=== PATIENT | female | born 1970 | race Caucasian/White ===

== ENCOUNTER 2022-06-12 20:16 | Inpatient (IN) ==
[2022-06-12] MEDS ORDERED: Morphine Sulfate 2 MG/ML SYRINGE IVP ONE (20:43)
[2022-06-12] MEDS ORDERED: 0.9 % Sodium Chloride 1,000 ML IV ONE (20:43)
[2022-06-12 21:18] LABS: Basophils # 0.1 K/mcL (0.0-0.2); Basophils % 0.7 %; Eosinophils # 0.5 K/mcL (0.0-0.6); Eosinophils % 4.1 %; Hemoglobin 11.6 g/dL (11.5-15.4); Immature Granulocytes % 1.1 % (0-4); Lymphocytes # 1.7 K/mcL (0.6-4.6); Lymphocytes % 15.2 %; Mean Corpuscular HGB Conc 30.5 g/dL (31.6-35.5); Mean Corpuscular Hemoglobin 30.1 pg (28.0-33.3); Mean Corpuscular Volume 98.7 fL (83.0-100.0); Mean Platelet Volume 11.1 fL (9.4-12.4); Monocytes # 0.7 K/mcL (0.0-1.3); Monocytes % 6.1 %; Neutrophils # 8.3 K/mcL (1.6-8.9); Platelet Count 246 K/mcL (140-400); Red Blood Count 3.85 M/mcL (3.82-4.97); Red Cell Distribution Width 13.2 % (11.5-14.5); Segmented Neutrophils % 72.8 %; White Blood Count 11.4 K/mcL (4.3-11.1)
[2022-06-12 21:34] LABS: INR 1.3; Prothrombin Time 14.5 Seconds (9.4-12.1)
[2022-06-12 21:36] LABS: BUN/Creatinine Ratio 9 (6-26); Blood Urea Nitrogen 6 mg/dL (6-20); Calcium 8.7 mg/dL (8.6-10.3); Carbon Dioxide 33 mEq/L (23-29); Chloride 97 mEq/L (98-107); Glucose 260 mg/dL (70-105); Magnesium 1.4 mg/dL (1.6-2.6); Osmolality,Calculated 291 (280-300); Potassium 3.2 mEq/L (3.5-5.1); Sodium 137 mEq/L (136-145); eGFR For African Americans > 60 (> 60); eGFR For Non-African Americans > 60 (> 60)
[2022-06-12 21:37] LABS: Activated Partial Thrombo Time 30.9 Seconds (26.0-36.0)
[2022-06-13] MEDS ORDERED: *HR* OxyCODONE Immed Rel 5 MG TABLET PO PRN ×2 (00:30→05:21)
[2022-06-13] MEDS ORDERED: *HR* HYDROcodone/Acet 5/325 mg TABLET PO PRN ×2 (00:30→05:21)
[2022-06-13] MEDS ORDERED: Acetaminophen 325 MG TABLET PO PRN ×2 (00:30→16:04)
[2022-06-13] MEDS ORDERED: Melatonin 3 MG TABLET PO PRN (00:30)
[2022-06-13] MEDS ORDERED: Naloxone 0.4 MG/ML INJ IVP PRN ×2 (00:30→16:04)
[2022-06-13] MEDS ORDERED: Ondansetron 4 MG/2 ML VIAL IVP PRN ×2 (00:30→16:04)
[2022-06-13] MEDS ORDERED: D5% in Water 1,000 ML IVC PRN ×2 (01:09→16:04)
[2022-06-13] MEDS ORDERED: Dextrose Gel 15 GM/37.5 ML TUBE PO PRN ×4 (01:09→16:04)
[2022-06-13] MEDS ORDERED: *HR* Dextrose 50 % in Water (Syg) 50 ML SYRINGE IVP PRN ×2 (01:09→16:04)
[2022-06-13] MEDS ORDERED: Saliva Stimulant 44.3ml BOTTLE PO PRN ×2 (01:12→16:04)
[2022-06-13 02:23] LABS: Hemoglobin 11.3 g/dL (11.5-15.4); Mean Corpuscular HGB Conc 30.5 g/dL (31.6-35.5); Mean Corpuscular Hemoglobin 30.1 pg (28.0-33.3); Mean Corpuscular Volume 98.4 fL (83.0-100.0); Platelet Count 265 K/mcL (140-400); Red Blood Count 3.76 M/mcL (3.82-4.97); Red Cell Distribution Width 13.2 % (11.5-14.5); White Blood Count 11.5 K/mcL (4.3-11.1)
[2022-06-13 02:27] LABS: VBG HCO3 26 mEq/L (21-27); VBG PCO2 38 mmHg (41-51); VBG PH 7.44 pH Units (7.32-7.42); VBG PO2 74 mmHg (25-50)
[2022-06-13 02:31] LABS: INR 1.3; Prothrombin Time 14.6 Seconds (9.4-12.1)
[2022-06-13 02:33] LABS: Activated Partial Thrombo Time 32.1 Seconds (26.0-36.0)
[2022-06-13 02:41] LABS: Acetaminophen < 10 mcg/mL (10-20); BUN/Creatinine Ratio 8 (6-26); Blood Urea Nitrogen 6 mg/dL (6-20); Calcium 8.4 mg/dL (8.6-10.3); Carbon Dioxide 29 mEq/L (23-29); Chloride 99 mEq/L (98-107); Ethanol < 10 mg/dL (Less than 10); Glucose 234 mg/dL (70-105); Magnesium 1.4 mg/dL (1.6-2.6); Osmolality,Calculated 285 (280-300); Phosphorous 1.9 mg/dL (2.7-4.5); Potassium 3.3 mEq/L (3.5-5.1); Salicylate < 2.5 mg/dL (15.0-30.0); Sodium 135 mEq/L (136-145); eGFR For African Americans > 60 (> 60); eGFR For Non-African Americans > 60 (> 60)
[2022-06-13] MEDS: Ipratropium/Albuterol Neb 3 ML IH SCH ×4 (04:13→21:30)
[2022-06-13 04:16] LABS: Thyroid Stimulating Hormone 11.625 mcIU/mL (0.340-5.600)
[2022-06-13] MEDS ORDERED: Ketorolac 30 MG/ML VIAL IVP ONE (04:22)
[2022-06-13] MEDS ORDERED: Saline Nasal Spray 44 ML BOTTLE NS PRN ×2 (05:48→16:04)
[2022-06-13] MEDS ORDERED: *HR* Heparin 5,000 UNIT/ML VIAL SQ SCH (06:00)
[2022-06-13] MEDS ORDERED: hydrOXYzine pamoate 25 MG CAPSULE PO PRN (06:34)
[2022-06-13 07:54] LABS: Adenovirus Not Detected (Not Detect); Bordetella Pertussis Not Detected (Not Detect); Chlamydophila pneumoniae Not Detected (Not Detect); Coronavirus 229E Not Detected (Not Detect); Coronavirus HKU1 Not Detected (Not Detect); Coronavirus NL63 Not Detected (Not Detect); Coronavirus OC43 Not Detected (Not Detect); Human Metapneumovirus Not Detected (Not Detect); Human Rhinovirus/Enterovirus Not Detected (Not Detect); Influenza A Subtype 2009 H1 Not Detected (Not Detect); Influenza B Not Detected (Not Detect); Mycoplasma pneumoniae Not Detected (Not Detect); Parainfluenza Virus 1 Not Detected (Not Detect); Parainfluenza Virus 2 Not Detected (Not Detect); Parainfluenza Virus 3 Not Detected (Not Detect); Parainfluenza Virus 4 Not Detected (Not Detect); Respiratory Syncytial Virus Not Detected (Not Detect); SARS-CoV-2 Not Detected (Not Detect)
[2022-06-13] MEDS: Gabapentin 400 MG CAPSULE PO SCH ×3 (08:56→21:59)
[2022-06-13] MEDS ORDERED: Artificial Tears SOLN 15 ML BOTTLE BOTH EYES SCH (09:00)
[2022-06-13] MEDS ORDERED: Chlorhexidine Rinse 15 ML MOUTHWASH MM SCH (09:00)
[2022-06-13] MEDS ORDERED: Multivit/Ca/Min/Fe/FA 1 TAB TABLET PO SCH (09:00)
[2022-06-13] MEDS ORDERED: Loratadine 10 MG TABLET PO SCH (09:00)
[2022-06-13] MEDS ORDERED: Topiramate 25 MG TABLET PO SCH ×2 (09:00→18:00)
[2022-06-13] MEDS ORDERED: Apixaban 5 MG TABLET PO SCH (09:00)
[2022-06-13] MEDS ORDERED: Metoprolol XL (24 HR) Succ 25 MG TAB.ER.24H PO SCH (09:00)
[2022-06-13] MEDS ORDERED: levoFLOXacin 750 MG/150 ML 750 MG/150 ML BAG IVPB SCH (09:00)
[2022-06-13] MEDS ORDERED: Cholecalciferol (D-3) 1,000 UNIT (25MCG) TABLET PO SCH (09:00)
[2022-06-13] MEDS ORDERED: Lactobacillus 1 EACH CAP.SPRINK PO SCH (09:00)
[2022-06-13] MEDS: Calcium Gluconate 1gm/50mL 1 GM/50 ML BAG IVPB SCH ×3 (09:23→15:18)
[2022-06-13] MEDS ORDERED: Budesonide/Formoterol 160/4.5 1 PUFF INH IH SCH (10:00)
[2022-06-13] MEDS ORDERED: *HR* HYDROmorphone PF 0.5 MG/0.5 ML SYRINGE IVP PRN (10:02)
[2022-06-13] MEDS ORDERED: *HR* FentaNYL (PF) 100 MCG/2 ML VIAL IVP PRN (10:02)
[2022-06-13 10:10] LABS: Estimated Average Glucose 220 mg/dl; Hemoglobin A1C 9.3 %
[2022-06-13] MEDS ORDERED: CeFAZolin Syr 3,000MG/30 ML 3,000 MG/30 ML SYRINGE IVPB ONE (10:11)
[2022-06-13] MEDS ORDERED: Ringers Solution, Lactated 1,000 ML IVC SCH ×2 (10:15→16:04)
[2022-06-13] MEDS ORDERED: ROPIVACAINE/PF/NS 0.25% 1 EACH SYRINGE INTRAART ONE (10:24)
[2022-06-13] MEDS ORDERED: Ropivacaine/PF 0.5% 30 ML VIAL ONE (10:24)
[2022-06-13 10:26] LABS: Amorphous Sediment,Urine Few per hpf (None-Few); Bilirubin,Urine Negative (Negative); Blood,Urine Large (Negative); Calcium Oxalate Crystals,Urine Present per hpf; Clarity,Urine Ex.Turbid (Clear); Color,Urine Yellow (Yellow); Glucose,Urine (UA) 200 mg/dL (Normal); Hyaline Casts,Urine Many per lpf (None Seen); Ketones,Urine Negative (Negative); Leukocyte Esterase,Urine Negative (Negative); Mucus,Urine Many per lpf (None-Few); Nitrite,Urine Negative (Negative); PH,Urine 6.5 pH Units (5.0-8.0); Protein,Urine 100 mg/dL (Neg-Trace); RBC,Urine TNTC per hpf (0-3); Specific Gravity,Urine 1.026 (1.010-1.025); Sperm,Urine Present per hpf (None Seen); Squamous Epithelial Cell,Urine Many per hpf (None-Few); WBC,Urine 15-30 per hpf (0-3)
[2022-06-13 10:39] LABS: Amphetamine Screen,Urine Negative ng/mL (Cutoff=1000); Barbiturate Screen,Urine Negative ng/mL (Cutoff=200); Benzodiazepines Screen,Urine Negative ng/mL (Cutoff=200); Cannabinoid Screen,Urine Negative ng/mL (Cutoff = 50); Cocaine Screen,Urine Negative ng/mL (Cutoff= 300); Opiate Screen,Urine Positive ng/mL (Cutoff=300); Phencyclidine Screen,Urine Negative ng/mL (Cutoff=25)
[2022-06-13] MEDS ORDERED: *HR* Propofol 200 MG/20 ML VIAL IVP ONE (10:44)
[2022-06-13] MEDS ORDERED: Ondansetron 4 MG/2 ML VIAL ONE (10:44)
[2022-06-13] MEDS ORDERED: Lidocaine -MPF 4% 5 ML AMPUL ONE (10:44)
[2022-06-13] MEDS ORDERED: Lidocaine -MPF 2% 5 ML VIAL ONE (10:44)
[2022-06-13] MEDS ORDERED: *HR* Rocuronium Bromide 50 MG/5 ML VIAL ONE (10:44)
[2022-06-13] MEDS ORDERED: *HR* FentaNYL (PF) 100 MCG/2 ML VIAL ONE ×2 (10:44→12:24)
[2022-06-13] MEDS ORDERED: *HR* Succinylcholine 200 MG/10 ML VIAL IVP ONE (10:44)
[2022-06-13] MEDS ORDERED: Bupivacaine/EPI 1:200k 0.25% 50 ML VIAL ONE (11:08)
[2022-06-13] MEDS ORDERED: Ketamine HCL *QUVA* 50mg (1mL) SYRINGE ONE (12:46)
[2022-06-13] MEDS: Topiramate 25 MG TABLET PO SCH (17:10)
[2022-06-13] MEDS: *HR* HYDROcodone/Acet 5/325 mg TABLET PO PRN (17:33)
[2022-06-13] MEDS ORDERED: Insulin LISPRO 300 UNITS/3 ML VIAL SUBQ SCH (21:00)
[2022-06-13] MEDS ORDERED: Insulin DETEMIR 100 UNIT/ML X5UNITS SUBQ SCH (21:00)
[2022-06-13] MEDS: Budesonide/Formoterol 160/4.5 1 PUFF INH IH SCH (21:34)
[2022-06-13] MEDS: Chlorhexidine Rinse 15 ML MOUTHWASH MM SCH (21:59)
[2022-06-13] MEDS: Apixaban 5 MG TABLET PO SCH (21:59)
[2022-06-13] MEDS: Lactobacillus 1 EACH CAP.SPRINK PO SCH (21:59)
[2022-06-13] MEDS: Insulin LISPRO 300 UNITS/3 ML VIAL SUBQ SCH (22:00)
[2022-06-13] MEDS: Insulin DETEMIR 100 UNIT/ML X5UNITS SUBQ SCH (22:00)
[2022-06-13] MEDS: Artificial Tears SOLN 15 ML BOTTLE BOTH EYES SCH (22:01)
[2022-06-13] MEDS: Melatonin 3 MG TABLET PO PRN (22:08)
[2022-06-14] MEDS: Ipratropium/Albuterol Neb 3 ML IH SCH ×2 (05:34→07:35)
[2022-06-14 06:57] LABS: % Iron Saturation 13 % (15-50); Iron 36 mcg/dL (50-170); Transferrin 192 mg/dL (203-362)
[2022-06-14 07:14] LABS: Ferritin 51 ng/mL (10-120)
[2022-06-14 07:20] LABS: Folate 19.7 ng/mL (3.0-16.0)
[2022-06-14] MEDS: Budesonide/Formoterol 160/4.5 1 PUFF INH IH SCH ×2 (07:33→22:48)
[2022-06-14] MEDS: levoFLOXacin 750 MG/150 ML 750 MG/150 ML BAG IVPB SCH (07:43)
[2022-06-14] MEDS: Cholecalciferol (D-3) 1,000 UNIT (25MCG) TABLET PO SCH (07:44)
[2022-06-14] MEDS: Topiramate 25 MG TABLET PO SCH ×2 (07:45→17:52)
[2022-06-14] MEDS: Lactobacillus 1 EACH CAP.SPRINK PO SCH ×2 (07:45→20:59)
[2022-06-14] MEDS: Loratadine 10 MG TABLET PO SCH (07:45)
[2022-06-14] MEDS: Multivit/Ca/Min/Fe/FA 1 TAB TABLET PO SCH (07:45)
[2022-06-14] MEDS: Apixaban 5 MG TABLET PO SCH ×2 (07:46→20:59)
[2022-06-14] MEDS: Gabapentin 400 MG CAPSULE PO SCH ×3 (07:47→21:00)
[2022-06-14] MEDS: *HR* OxyCODONE Immed Rel 5 MG TABLET PO PRN ×2 (07:48→13:38)
[2022-06-14] MEDS: Metoprolol XL (24 HR) Succ 25 MG TAB.ER.24H PO SCH (07:52)
[2022-06-14] MEDS: Artificial Tears SOLN 15 ML BOTTLE BOTH EYES SCH ×2 (07:55→20:58)
[2022-06-14] MEDS: Chlorhexidine Rinse 15 ML MOUTHWASH MM SCH ×2 (07:56→20:59)
[2022-06-14] MEDS ORDERED: Ipratropium/Albuterol Neb 3 ML IH PRN (12:00)
[2022-06-14] MEDS: Insulin LISPRO 300 UNITS/3 ML VIAL SUBQ SCH ×2 (17:52→21:01)
[2022-06-14] MEDS: Insulin DETEMIR 100 UNIT/ML X5UNITS SUBQ SCH (21:00)
[2022-06-14] MEDS: hydrOXYzine pamoate 25 MG CAPSULE PO PRN (21:06)
[2022-06-14] MEDS: Melatonin 3 MG TABLET PO PRN (21:06)
[2022-06-15 05:41] LABS: Basophils # 0.1 K/mcL (0.0-0.2); Basophils % 0.4 %; Eosinophils # 0.4 K/mcL (0.0-0.6); Eosinophils % 3.5 %; Hematocrit 27.8 % (35.3-44.9); Immature Granulocytes % 1.2 % (0-4); Lymphocytes # 2.2 K/mcL (0.6-4.6); Lymphocytes % 18.8 %; Mean Corpuscular HGB Conc 30.6 g/dL (31.6-35.5); Mean Corpuscular Volume 98.2 fL (83.0-100.0); Monocytes # 1.1 K/mcL (0.0-1.3); Monocytes % 9.8 %; Neutrophils # 7.7 K/mcL (1.6-8.9); Platelet Count 253 K/mcL (140-400); Red Blood Count 2.83 M/mcL (3.82-4.97); Red Cell Distribution Width 13.6 % (11.5-14.5); Segmented Neutrophils % 66.3 %; White Blood Count 11.6 K/mcL (4.3-11.1)
[2022-06-15 05:45] LABS: Hemoglobin 8.5 g/dL (11.5-15.4)
[2022-06-15 06:03] LABS: BUN/Creatinine Ratio 9 (6-26); Blood Urea Nitrogen 6 mg/dL (6-20); Calcium 7.8 mg/dL (8.6-10.3); Carbon Dioxide 33 mEq/L (23-29); Chloride 100 mEq/L (98-107); Glucose 205 mg/dL (70-105); Osmolality,Calculated 288 (280-300); Potassium 3.3 mEq/L (3.5-5.1); Sodium 137 mEq/L (136-145); eGFR For African Americans > 60 (> 60); eGFR For Non-African Americans > 60 (> 60)
[2022-06-15] MEDS: Lactobacillus 1 EACH CAP.SPRINK PO SCH ×2 (09:54→20:06)
[2022-06-15] MEDS: Metoprolol XL (24 HR) Succ 25 MG TAB.ER.24H PO SCH (09:54)
[2022-06-15] MEDS: Cholecalciferol (D-3) 1,000 UNIT (25MCG) TABLET PO SCH (09:55)
[2022-06-15] MEDS: Loratadine 10 MG TABLET PO SCH (09:55)
[2022-06-15] MEDS: Multivit/Ca/Min/Fe/FA 1 TAB TABLET PO SCH (09:55)
[2022-06-15] MEDS: Gabapentin 400 MG CAPSULE PO SCH ×3 (09:55→20:06)
[2022-06-15] MEDS: Apixaban 5 MG TABLET PO SCH ×2 (09:55→20:06)
[2022-06-15] MEDS: levoFLOXacin 750 MG/150 ML 750 MG/150 ML BAG IVPB SCH (09:56)
[2022-06-15] MEDS: Chlorhexidine Rinse 15 ML MOUTHWASH MM SCH ×2 (09:56→20:07)
[2022-06-15] MEDS: Topiramate 25 MG TABLET PO SCH ×2 (09:56→18:08)
[2022-06-15] MEDS: Artificial Tears SOLN 15 ML BOTTLE BOTH EYES SCH ×2 (09:56→20:07)
[2022-06-15] MEDS: Insulin LISPRO 300 UNITS/3 ML VIAL SUBQ SCH ×4 (09:57→20:08)
[2022-06-15] MEDS: Budesonide/Formoterol 160/4.5 1 PUFF INH IH SCH ×2 (11:08→19:51)
[2022-06-15] MEDS: Ipratropium/Albuterol Neb 3 ML IH SCH (11:59)
[2022-06-15] MEDS: *HR* OxyCODONE Immed Rel 5 MG TABLET PO PRN ×2 (15:50→20:15)
[2022-06-15] MEDS: Insulin DETEMIR 100 UNIT/ML X5UNITS SUBQ SCH (20:07)
[2022-06-15] MEDS: hydrOXYzine pamoate 25 MG CAPSULE PO PRN (20:15)
[2022-06-15] MEDS: Melatonin 3 MG TABLET PO PRN (20:16)
[2022-06-16] MEDS: *HR* OxyCODONE Immed Rel 5 MG TABLET PO PRN ×3 (05:53→20:41)
[2022-06-16 06:11] LABS: Basophils # 0.1 K/mcL (0.0-0.2); Basophils % 0.6 %; Eosinophils # 0.5 K/mcL (0.0-0.6); Eosinophils % 4.5 %; Hematocrit 28.2 % (35.3-44.9); Hemoglobin 8.6 g/dL (11.5-15.4); Immature Granulocytes % 1.2 % (0-4); Lymphocytes # 1.9 K/mcL (0.6-4.6); Lymphocytes % 17.1 %; Mean Corpuscular HGB Conc 30.5 g/dL (31.6-35.5); Mean Corpuscular Hemoglobin 30.2 pg (28.0-33.3); Mean Corpuscular Volume 98.9 fL (83.0-100.0); Mean Platelet Volume 10.9 fL (9.4-12.4); Monocytes # 0.9 K/mcL (0.0-1.3); Monocytes % 8.4 %; Neutrophils # 7.7 K/mcL (1.6-8.9); Platelet Count 251 K/mcL (140-400); Red Blood Count 2.85 M/mcL (3.82-4.97); Red Cell Distribution Width 13.6 % (11.5-14.5); Segmented Neutrophils % 68.2 %; White Blood Count 11.2 K/mcL (4.3-11.1)
[2022-06-16 06:28] LABS: BUN/Creatinine Ratio 11 (6-26); Blood Urea Nitrogen 7 mg/dL (6-20); Calcium 8.2 mg/dL (8.6-10.3); Carbon Dioxide 31 mEq/L (23-29); Chloride 100 mEq/L (98-107); Glucose 230 mg/dL (70-105); Osmolality,Calculated 287 (280-300); Potassium 3.3 mEq/L (3.5-5.1); Sodium 136 mEq/L (136-145); eGFR For African Americans > 60 (> 60); eGFR For Non-African Americans > 60 (> 60)
[2022-06-16] MEDS: Budesonide/Formoterol 160/4.5 1 PUFF INH IH SCH ×2 (07:45→20:44)
[2022-06-16] MEDS: Topiramate 25 MG TABLET PO SCH ×2 (08:07→18:05)
[2022-06-16] MEDS: Loratadine 10 MG TABLET PO SCH (08:07)
[2022-06-16] MEDS: Cholecalciferol (D-3) 1,000 UNIT (25MCG) TABLET PO SCH (08:07)
[2022-06-16] MEDS: Lactobacillus 1 EACH CAP.SPRINK PO SCH ×2 (08:08→20:35)
[2022-06-16] MEDS: Metoprolol XL (24 HR) Succ 25 MG TAB.ER.24H PO SCH (08:08)
[2022-06-16] MEDS: Gabapentin 400 MG CAPSULE PO SCH ×3 (08:08→20:35)
[2022-06-16] MEDS: Multivit/Ca/Min/Fe/FA 1 TAB TABLET PO SCH (08:08)
[2022-06-16] MEDS: Apixaban 5 MG TABLET PO SCH ×2 (08:09→20:35)
[2022-06-16] MEDS: Chlorhexidine Rinse 15 ML MOUTHWASH MM SCH (08:09)
[2022-06-16] MEDS: Insulin LISPRO 300 UNITS/3 ML VIAL SUBQ SCH ×4 (08:16→20:36)
[2022-06-16] MEDS: Artificial Tears SOLN 15 ML BOTTLE BOTH EYES SCH ×3 (09:00→20:34)
[2022-06-16] MEDS: cefTRIAXone 2,000 MG in 0.9 % Sodium Chloride 20 ML IVP SCH (11:55)
[2022-06-16] MEDS: Azithromycin 500 MG in 0.9 % Sodium Chloride 250 ML IVPB SCH (11:57)
[2022-06-16] MEDS: hydrOXYzine pamoate 25 MG CAPSULE PO PRN (20:35)
[2022-06-16] MEDS: Melatonin 3 MG TABLET PO PRN (20:41)
[2022-06-17] MEDS: Chlorhexidine Rinse 15 ML MOUTHWASH MM SCH ×3 (05:25→21:06)
[2022-06-17] MEDS: Insulin DETEMIR 100 UNIT/ML X5UNITS SUBQ SCH ×2 (05:25→21:10)
[2022-06-17 05:52] LABS: Basophils # 0.1 K/mcL (0.0-0.2); Basophils % 0.6 %; Eosinophils # 0.7 K/mcL (0.0-0.6); Eosinophils % 5.6 %; Hematocrit 29.5 % (35.3-44.9); Hemoglobin 8.8 g/dL (11.5-15.4); Immature Granulocytes % 1.1 % (0-4); Lymphocytes # 2.1 K/mcL (0.6-4.6); Lymphocytes % 18.3 %; Mean Corpuscular HGB Conc 29.8 g/dL (31.6-35.5); Mean Corpuscular Hemoglobin 29.8 pg (28.0-33.3); Monocytes # 0.8 K/mcL (0.0-1.3); Monocytes % 6.6 %; Neutrophils # 7.9 K/mcL (1.6-8.9); Platelet Count 296 K/mcL (140-400); Red Blood Count 2.95 M/mcL (3.82-4.97); Red Cell Distribution Width 13.9 % (11.5-14.5); Segmented Neutrophils % 67.8 %; White Blood Count 11.6 K/mcL (4.3-11.1)
[2022-06-17 06:18] LABS: BUN/Creatinine Ratio 11 (6-26); Blood Urea Nitrogen 7 mg/dL (6-20); Calcium 8.5 mg/dL (8.6-10.3); Carbon Dioxide 29 mEq/L (23-29); Chloride 100 mEq/L (98-107); Glucose 230 mg/dL (70-105); Osmolality,Calculated 287 (280-300); Potassium 3.4 mEq/L (3.5-5.1); Sodium 136 mEq/L (136-145); eGFR For African Americans > 60 (> 60); eGFR For Non-African Americans > 60 (> 60)
[2022-06-17] MEDS: Artificial Tears SOLN 15 ML BOTTLE BOTH EYES SCH ×2 (08:47→21:06)
[2022-06-17] MEDS: Loratadine 10 MG TABLET PO SCH (08:48)
[2022-06-17] MEDS: Lactobacillus 1 EACH CAP.SPRINK PO SCH ×2 (08:48→21:05)
[2022-06-17] MEDS: Topiramate 25 MG TABLET PO SCH ×2 (08:48→16:42)
[2022-06-17] MEDS: Metoprolol XL (24 HR) Succ 25 MG TAB.ER.24H PO SCH (08:48)
[2022-06-17] MEDS: Cholecalciferol (D-3) 1,000 UNIT (25MCG) TABLET PO SCH (08:48)
[2022-06-17] MEDS: Apixaban 5 MG TABLET PO SCH ×2 (08:48→21:06)
[2022-06-17] MEDS: Gabapentin 400 MG CAPSULE PO SCH ×3 (08:48→21:05)
[2022-06-17] MEDS: Multivit/Ca/Min/Fe/FA 1 TAB TABLET PO SCH (08:48)
[2022-06-17] MEDS: cefTRIAXone 2,000 MG in 0.9 % Sodium Chloride 20 ML IVP SCH (08:49)
[2022-06-17] MEDS: Insulin LISPRO 300 UNITS/3 ML VIAL SUBQ SCH ×4 (08:56→21:08)
[2022-06-17] MEDS: Budesonide/Formoterol 160/4.5 1 PUFF INH IH SCH ×2 (10:01→21:39)
[2022-06-17] MEDS: *HR* OxyCODONE Immed Rel 5 MG TABLET PO PRN ×2 (10:23→21:06)
[2022-06-17] MEDS: Azithromycin 500 MG in 0.9 % Sodium Chloride 250 ML IVPB SCH (10:25)
[2022-06-17 10:57] LABS: Mycoplasma pneumoniae IgG 0.24 U/L (<=0.09)
[2022-06-18] MEDS: Budesonide/Formoterol 160/4.5 1 PUFF INH IH SCH ×2 (07:24→20:23)
[2022-06-18] MEDS: Apixaban 5 MG TABLET PO SCH ×2 (08:43→20:05)
[2022-06-18] MEDS: Loratadine 10 MG TABLET PO SCH (08:43)
[2022-06-18] MEDS: Lactobacillus 1 EACH CAP.SPRINK PO SCH ×2 (08:43→19:58)
[2022-06-18] MEDS: Chlorhexidine Rinse 15 ML MOUTHWASH MM SCH ×2 (08:43→20:06)
[2022-06-18] MEDS: Gabapentin 400 MG CAPSULE PO SCH ×3 (08:43→20:05)
[2022-06-18] MEDS: cefTRIAXone 2,000 MG in 0.9 % Sodium Chloride 20 ML IVP SCH (08:43)
[2022-06-18] MEDS: Topiramate 25 MG TABLET PO SCH ×2 (08:44→19:39)
[2022-06-18] MEDS: Metoprolol XL (24 HR) Succ 25 MG TAB.ER.24H PO SCH (08:44)
[2022-06-18] MEDS: Multivit/Ca/Min/Fe/FA 1 TAB TABLET PO SCH (08:44)
[2022-06-18] MEDS: Cholecalciferol (D-3) 1,000 UNIT (25MCG) TABLET PO SCH (08:44)
[2022-06-18] MEDS: *HR* OxyCODONE Immed Rel 5 MG TABLET PO PRN ×2 (08:45→13:46)
[2022-06-18] MEDS: Artificial Tears SOLN 15 ML BOTTLE BOTH EYES SCH ×2 (09:48→20:06)
[2022-06-18] MEDS ORDERED: Perflutren Lipid Microsphere 1.3 ML in 0.9 % Sodium Chloride 8.7 ML IVP PRN (13:05)
[2022-06-18] MEDS: Azithromycin 500 MG in 0.9 % Sodium Chloride 250 ML IVPB SCH (13:37)
[2022-06-18] MEDS: Insulin LISPRO 300 UNITS/3 ML VIAL SUBQ SCH ×2 (13:38→19:39)
[2022-06-18] MEDS ORDERED: Acetaminophen IV 1,000 MG/100 ML BAG IVPB ONE (19:15)
[2022-06-18] MEDS: Insulin DETEMIR 100 UNIT/ML X5UNITS SUBQ SCH (20:06)
[2022-06-19] MEDS ORDERED: Iopamidol - 370 500 ML MLS IVP ONE (07:21)
[2022-06-19] MEDS: Insulin LISPRO 300 UNITS/3 ML VIAL SUBQ SCH ×3 (09:03→17:34)
[2022-06-19] MEDS: Artificial Tears SOLN 15 ML BOTTLE BOTH EYES SCH ×2 (09:05→22:16)
[2022-06-19] MEDS: Apixaban 5 MG TABLET PO SCH ×2 (09:06→19:46)
[2022-06-19] MEDS: Lactobacillus 1 EACH CAP.SPRINK PO SCH ×2 (09:06→19:46)
[2022-06-19] MEDS: Loratadine 10 MG TABLET PO SCH (09:06)
[2022-06-19] MEDS: Chlorhexidine Rinse 15 ML MOUTHWASH MM SCH ×2 (09:06→19:47)
[2022-06-19] MEDS: Insulin DETEMIR 100 UNIT/ML X5UNITS SUBQ SCH ×2 (09:07→22:44)
[2022-06-19] MEDS: Gabapentin 400 MG CAPSULE PO SCH ×3 (09:07→19:46)
[2022-06-19] MEDS: cefTRIAXone 2,000 MG in 0.9 % Sodium Chloride 20 ML IVP SCH (09:07)
[2022-06-19] MEDS: Multivit/Ca/Min/Fe/FA 1 TAB TABLET PO SCH (09:08)
[2022-06-19] MEDS: Metoprolol XL (24 HR) Succ 25 MG TAB.ER.24H PO SCH (09:09)
[2022-06-19] MEDS: Topiramate 25 MG TABLET PO SCH ×2 (09:09→17:35)
[2022-06-19] MEDS: Cholecalciferol (D-3) 1,000 UNIT (25MCG) TABLET PO SCH (09:09)
[2022-06-19] MEDS: Azithromycin 250 MG TABLET PO SCH (09:10)
[2022-06-19] MEDS: *HR* HYDROcodone/Acet 5/325 mg TABLET PO PRN ×2 (09:10→19:46)
[2022-06-19] MEDS: Budesonide/Formoterol 160/4.5 1 PUFF INH IH SCH ×2 (09:41→20:12)
[2022-06-19 14:40] LABS: Basophils # 0.1 K/mcL (0.0-0.2); Basophils % 0.8 %; Eosinophils # 0.6 K/mcL (0.0-0.6); Eosinophils % 5.6 %; Hematocrit 27.8 % (35.3-44.9); Hemoglobin 8.7 g/dL (11.5-15.4); Immature Granulocytes % 1.1 % (0-4); Immature Platelets 4.5 % (1.1-6.1); Lymphocytes # 1.8 K/mcL (0.6-4.6); Mean Corpuscular HGB Conc 31.3 g/dL (31.6-35.5); Mean Corpuscular Hemoglobin 30.5 pg (28.0-33.3); Mean Corpuscular Volume 97.5 fL (83.0-100.0); Mean Platelet Volume 10.7 fL (9.4-12.4); Monocytes # 0.7 K/mcL (0.0-1.3); Monocytes % 6.7 %; Neutrophils # 6.8 K/mcL (1.6-8.9); Platelet Count 323 K/mcL (140-400); Red Blood Count 2.85 M/mcL (3.82-4.97); Segmented Neutrophils % 67.8 %
[2022-06-19 14:55] LABS: BUN/Creatinine Ratio 11 (6-26); Blood Urea Nitrogen 7 mg/dL (6-20); Calcium 8.2 mg/dL (8.6-10.3); Carbon Dioxide 30 mEq/L (23-29); Chloride 103 mEq/L (98-107); Glucose 226 mg/dL (70-105); Magnesium 1.5 mg/dL (1.6-2.6); Osmolality,Calculated 291 (280-300); Phosphorous 2.5 mg/dL (2.7-4.5); Potassium 3.7 mEq/L (3.5-5.1); Sodium 138 mEq/L (136-145); eGFR For African Americans > 60 (> 60); eGFR For Non-African Americans > 60 (> 60)
[2022-06-19] MEDS: *HR* OxyCODONE Immed Rel 5 MG TABLET PO PRN ×2 (17:48→23:40)
[2022-06-20 03:45] VITALS: PULSE 95; TEMP 98
[2022-06-20 06:01] LABS: Basophils % 0.9 %; Mean Platelet Volume 10.5 fL (9.4-12.4)
[2022-06-20 06:03] LABS: Basophils # 0.1 K/mcL (0.0-0.2); Eosinophils # 0.6 K/mcL (0.0-0.6); Eosinophils % 6.1 %; Hematocrit 31.2 % (35.3-44.9); Hemoglobin 9.1 g/dL (11.5-15.4); Immature Granulocytes % 1.5 % (0-4); Lymphocytes # 1.8 K/mcL (0.6-4.6); Lymphocytes % 18.5 %; Mean Corpuscular HGB Conc 29.2 g/dL (31.6-35.5); Mean Corpuscular Hemoglobin 29.4 pg (28.0-33.3); Mean Corpuscular Volume 100.6 fL (83.0-100.0); Monocytes # 0.7 K/mcL (0.0-1.3); Monocytes % 7.7 %; Neutrophils # 6.3 K/mcL (1.6-8.9); Platelet Count 348 K/mcL (140-400); Red Cell Distribution Width 14.2 % (11.5-14.5); Segmented Neutrophils % 65.3 %; White Blood Count 9.6 K/mcL (4.3-11.1)
[2022-06-20 06:18] LABS: BUN/Creatinine Ratio 12 (6-26); Blood Urea Nitrogen 7 mg/dL (6-20); Calcium 8.3 mg/dL (8.6-10.3); Carbon Dioxide 31 mEq/L (23-29); Chloride 103 mEq/L (98-107); Glucose 196 mg/dL (70-105); Magnesium 1.4 mg/dL (1.6-2.6); Osmolality,Calculated 291 (280-300); Potassium 3.6 mEq/L (3.5-5.1); Sodium 139 mEq/L (136-145); eGFR For African Americans > 60 (> 60); eGFR For Non-African Americans > 60 (> 60)
[2022-06-20] MEDS: *HR* OxyCODONE Immed Rel 5 MG TABLET PO PRN ×2 (06:18→14:18)
[2022-06-20 06:31] VITALS: BP 124/74
[2022-06-20] MEDS: Budesonide/Formoterol 160/4.5 1 PUFF INH IH SCH (07:45)
[2022-06-20 07:46] VITALS: O2SAT 98
[2022-06-20] MEDS ORDERED: CefTRIAXone 2,000 MG VIAL ONE (08:56)
[2022-06-20] MEDS: Apixaban 5 MG TABLET PO SCH (09:14)
[2022-06-20] MEDS: Gabapentin 400 MG CAPSULE PO SCH (09:14)
[2022-06-20] MEDS: Cholecalciferol (D-3) 1,000 UNIT (25MCG) TABLET PO SCH (09:14)
[2022-06-20] MEDS: Azithromycin 250 MG TABLET PO SCH (09:14)
[2022-06-20] MEDS: Topiramate 25 MG TABLET PO SCH (09:15)
[2022-06-20] MEDS: Loratadine 10 MG TABLET PO SCH (09:15)
[2022-06-20] MEDS: Metoprolol XL (24 HR) Succ 25 MG TAB.ER.24H PO SCH (09:16)
[2022-06-20] MEDS: Lactobacillus 1 EACH CAP.SPRINK PO SCH (09:16)
[2022-06-20] MEDS: Chlorhexidine Rinse 15 ML MOUTHWASH MM SCH (09:16)
[2022-06-20] MEDS: Insulin LISPRO 300 UNITS/3 ML VIAL SUBQ SCH (09:18)
[2022-06-20] MEDS: cefTRIAXone 2,000 MG in 0.9 % Sodium Chloride 20 ML IVP SCH (09:19)
[2022-06-20] MEDS: Artificial Tears SOLN 15 ML BOTTLE BOTH EYES SCH (09:20)
[2022-06-20] MEDS: Multivit/Ca/Min/Fe/FA 1 TAB TABLET PO SCH (09:21)
[2022-06-20] MEDS ORDERED: Iron Sucrose Complex 200 MG in 0.9 % Sodium Chloride 100 ML IVPB ONE (11:24)
[2022-06-20 14:03] LABS: Influenza A PCR Negative (Negative); Influenza B PCR Negative (Negative); Resp. Syncytial Virus PCR Negative (Negative)
[2022-06-20 14:04] LABS: SARS-CoV-2 by PCR (In House) Negative (Negative)
[2022-06-20] MEDS ORDERED: Magnesium Oxide 400 MG TABLET PO SCH (21:00)
== END 2022-06-20 14:40 | DRG 853 ==
LOC: EMEROOARM 20:16 → 4WAOSI 20:16 → SUATTDRO 06-13 00:22 → 4WAOSI 06-13 01:22 → SUATTDRO 06-15 13:56
PROVIDERS: ADMIT Internal Medicine; ATTEND Pharmacist